=== PATIENT | female | born 1965 | race Caucasian/White ===

== ENCOUNTER 2016-10-31 09:14 | Observation (INO) ==
[2016-10-31 10:30] LABS: Basophils # 0.1 10*3/uL (0.0-0.2); Basophils % 0.7 % (0.0-0.8); Eosinophils # 0.3 10*3/uL (0.0-0.87); Eosinophils % 4.2 % (0.00-10.9); Hematocrit 40.2 VOL% (35.7-47.0); Hemoglobin 13.8 GM/DL (12.0-16.0); Immature Granulocytes % 0.3 %; Immature Granulocytes Absolute 0.02 #; Lymphocytes # 2.2 10*3/uL (1.4-4.0); Lymphocytes % 31.7 % (21.3-54.2); Mean Corpuscular HGB Conc 34.3 GM/DL (32-36); Mean Corpuscular Hemoglobin 31 PG (27-34); Mean Corpuscular Volume 90.5 FL (87-102); Mean Platelet Volume 10.2 FL (9.6-12.0); Monocytes # 0.6 10*3/uL (0.11-0.8); Monocytes % 8.5 % (1.7-12.7); Neutrophils # 3.9 10*3/uL (1.4-7.4); Neutrophils % 54.6 % (38.7-73.9); Platelet Count 238 T/CUMM (130-400); Red Blood Count 4.44 MC/CUMM (3.8-5.5); Red Cell Distribution Width 12.6 % (9.3-17.3); White Blood Count 7.1 T/CUMM (4-12)
[2016-10-31 10:39] LABS: Apearance,Urine Slightly Hazy (Clear); Bilirubin,Urine Negative (Negative); Blood, Urine Small mg/dL (Negative); Glucose,Urine (UA) Negative (Negative); Ketones,Urine 5 mg/dL (Negative); Mucus,Urine Moderate /LPF (Occasional); Nitrite,Urine Negative (Negative); Protein,Urine Negative; RBC,Urine 2 /HPF (0-4); Squamous Epithelial Cell,Urine Occasional /HPF (0-10); Urine Color Yellow (Yellow); Urine Specific Gravity 1.012 (1.001-1.035); Urine Urobilinogen < 2.0 EU/DL (0.2-1.0); WBC,Urine 1 /HPF (0-6)
--- NOTE | 2016-10-31 10:44 | CT Report ---
History: Left lower quadrant abdominal pain. Diarrhea Date: 10/31/2016 Study: CT abdomen and pelvis without contrast Comparison exam: No previous abdominal CT currently available for comparison Technique: Spiral CT sections were obtained from the lung bases to the pubic symphysis without contrast CT abdomen: There is no graciela pneumonia in the partially visualized lung bases. There is no gross pleural or pericardial effusion. There is no radiopaque renal or ureteral stone. There is no hydronephrosis. The liver, spleen, pancreas, adrenal glands, bile ducts, and fluid-filled gallbladder are unremarkable. There is no aneurysm of the mildly calcified abdominal aorta. There is a tiny periumbilical hernia containing fat. There is no bowel obstruction. The appendix is identified and appears normal. There is no gross lymphadenopathy by short axis diameter criteria. Schmorl's nodes noted inferiorly at L3 and L5. There is mild lumbar spondylosis. There is moderate degenerative disc narrowing at L3-L4. CT pelvis: There is no pelvic mass or abnormal pelvic fluid collection. There is no pelvic lymphadenopathy by short axis diameter criteria. The CT exam was performed using one or more of the following dose reduction techniques: Automated exposure control, adjustment of the mA and/or kV according to patient size, or use of iterative reconstruction technique. Impression: No acute abdominal process PROCEDURE INTERPRETED AT [facility] DEPARTMENT OF RADIOLOGY Final Report Signed by: Dr. Keira Nicole
[2016-10-31 11:00] LABS: Alanine Aminotransferase 29 U/L (13-56); Albumin 3.9 G/DL (3.4-5.0); Alkaline Phosphatase 180 U/L (45-117); Aspartate Amino Transferase 21 U/L (0-37); Bilirubin,Total < 0.39 MG/DL (0.2-1.0); Blood Urea Nitrogen 6 MG/DL (7-18); Calcium 9.3 MG/DL (8.5-10.1); Glucose 90 MG/DL (74-106); Magnesium 2.2 MG/DL (1.8-2.4); Osmolality,Calculated 276.4 MOS/KG (273-304); Potassium 3.7 MMOL/L (3.5-5.1); Sodium 140 MMOL/L (136-145); Total Protein 6.7 G/DL (6.4-8.3)
--- NOTE | 2016-10-31 11:18 | Emergency Department Note ---
Rishi Niño Rolonda, am scribing for, and in the presence of, Anshul Patterson MD 09:56. Leonardo Niño Phillip K, MD, personally performed the services described in this documentation, ascribed by Nalini Blackwell in my presence, and it is both accurate and complete . Arrival - Arrival Chief Complaint: Nausea/Vomiting/Diarrhea Stated Complaint: diahrrea nausea stomach pain for lot days ED Nursing Triage Note: diarrhea for ten days or more. was started on flagyl on monday and told to come to er if not better on monday. reports some nausea and pain in right side of abdomen that started this morning. Mode of Arrival: Ambulatory Limitations: No Limitations Source: Patient, Old Records Reviewed, RN Notes Reviewed Time Seen by Provider: 10/31/16 09:41 - History of Present Illness HPI Narrative: Pt henna 50 y/o female who presents to the ED for further evaluation of diarrhea with an onset of x1 week. Pt states that she has been having a lose stool but it has not been watery. She states that she has diarrhea approximately x5-10 a day. She denies eating old food or traveling out of the country. Pt states that she also has left sided back and abdomen pain. She states that she is taking Flagyl TID and it feels like "her face is on fire" after her third dose. She confirms nausea but denies vomiting and fever. No other complaint/pain in ED. Onset (ago): week(s) Consistency: constant Severity: mild, moderate Severity scale (1-10): 4 Date of Last Menstrual Period: part hy Allergies/Adverse Reactions: Allergies Allergy/AdvReac Type Severity Reaction Status Date / Time No Known Allergies Allergy Verified 09/12/16 14:42 Home Medications: Home Medications Medication Instructions Recorded Confirmed Type PHENobarbital [Phenobarbital] 200 mg PO BEDTIME 06/02/16 10/31/16 History LORazepam TAB [Ativan Tab] 0.5 mg PO BID PRN 07/21/16 10/31/16 History Acetaminophen/Caffeine [Excedrin 1 each PO DAILY PRN 09/12/16 10/31/16 History Tension Headache Cplt] Methocarbamol [Methocarbamol] 500 mg PO BID PRN 10/31/16 10/31/16 History Ondansetron HCl [Ondansetron HCl] 4 mg PO Q6H PRN 10/31/16 10/31/16 History metroNIDAZOLE [Metronidazole 500 mg PO TID 10/31/16 10/31/16 History Cap/Tab] Review of System - Review of System 12 point system: reviewed and no additional remarkable complaints except as stated - Review of System Constitutional: Absent: chills Eyes: Absent: discharge Head/Ears/Nose/Throat: Absent: earache Respiratory: Absent: cough Cardiovascular: Absent: chest pain Gastrointestinal: Present: abdominal pain, nausea, diarrhea. Absent: vomiting Genitourinary female: Absent: dysuria Musculoskeletal: Present: back pain. Absent: arm pain Skin: Absent: rash Neurological: Absent: headache Psychiatric: Absent: anxiety Endocrine: Absent: cold intolerance Hematological/Lymphatic: Absent: easy bleeding Allergic/Immunologic: Absent: facial swelling Medical,Surgical,& Family Hx - Medical History Neurology: History of: Migraine, Seizures (LAST SEIZURE 2007.) HEENT: History of: Eye Problem Respiratory: No history of: Respiratory Problems (FLU VAC- NO; PNEU VAC- NO.) Genitourinary: History of: Recurring Urinary Tract Infections (have had one) Gastrointestinal: History of: GI Problems (CONSTIPATION/ DIARRHEA.) Musculoskeletal: History of: Back/Neck Problems (NECK OA) Other: History of: Anesthesia Reactions (itchy in face, NAUSEA), Miscellaneous Medical Problems (SHINGLES 2013 RT ARM) - Surgical History Abdominal Surgeries: Surgical HX of: Abdominal Surgery, Colonoscopy, Hernia Repair Reproductive Surgeries: Surgical HX of;: Section (x2), Dilation and Curettage, Gynecologic Surgery, Hysterectomy (partial), Tubal Ligation Orthopedic Surgeries: Surgical HX of;: Orthopedic Surgery (BILATERAL 5TH DIGIT ON FOOT CORRECTION) - Family History Family History: Reports;: Family Heart Disease (parents) - Social History Smoking Status: Current some day smoker Exam Vital Signs: Vital Signs Temperature 98.1 F 10/31/16 09:21 Pulse Rate 95 H 10/31/16 09:21 Respiratory Rate 18 10/31/16 09:21 Blood Pressure 107/81 10/31/16 09:21 O2 Sat by Pulse Oximetry 98 10/31/16 09:21 - General General appearance: alert, in no apparent distress - Head Head exam: Present: atraumatic, normocephalic - Eye Eye exam: Present: PERRL, EOMI - ENT ENT exam: Present: mucous membranes moist. Absent: mucous membranes dry - Neck Neck exam: Present: full ROM. Absent: tenderness - Chest Chest inspection: Present: symmetric chest wall rise. Absent: tenderness - Respiratory Respiratory exam: Present: normal lung sounds bilaterally. Absent: wheezes - Cardiovascular Cardiovascular exam: Present: regular rate, normal rhythm, normal heart sounds. Absent: bradycardia - Abdominal Exam Abdominal exam: Present: soft, tenderness (LLQ to direct palpation), normal bowel sounds - Extremities Exam Extremities exam: Present: full ROM. Absent: tenderness - Back Exam Back exam: Present: full ROM, tenderness, CVA tenderness (L) - Neurological Exam Neurological exam: Present: alert, oriented X3, CN II-XII intact - Psychiatric Psychiatric exam: Present: normal affect, normal mood - Skin Skin exam: Present: warm, dry, intact, normal color. Absent: rash Results - Labs CBC & BMP: 10/31/16 10:11 10/31/16 10:11 Lab Results: I have reviewed the patients labs Labs: Laboratory Tests 10/31/16 10:11 WBC 7.1 RBC 4.44 Hgb 13.8 Hct 40.2 - Diagnostic Findings Procedure: CT Abdomen and Pelvis: report reviewed by me (CT abdomen and pelvis shows nothing acute. There is no evidence of diverticulitis or appendicitis.) Disposition Clinical Impression: Abdominal pain, Diarrhea Case discussed with: patient Disposition: Still a Patient Condition: Guarded Additional Instructions: Admit to the hospitalist.
--- NOTE | 2016-10-31 12:13 | Hospitalist History & Physical ---
Assessment and Plan - Time spent with patient Time spent with patient: Greater than 30 minutes (1) Abdominal pain Status: Acute Assessment and plan: Admit 10/31/16 IV hydration: NS Consult GI for 10 +days of loose stools and nausea, with now left sided abd and flank pain Stool Culture: cdiff, wbc Will discuss with Dr Aviles for further recommendations with care. Current Visit: Yes (2) Diarrhea Status: Acute Current Visit: Yes History of Present Illness Chief complaint: nausea/diarrhea/ left sided abdominal and flank pain History of present illness: Ms. Dong is a 50 year old white female with PMHx of seizure, migraine, shingles presented to the ED for further evaluation of nausea, diarrhea for 10 or more days and now onset of left sided lower abdominal and flank pain. She reports stool frequency 6-10 very loose stools. She reports going to Dr Alston on Monday and was placed on Flagyl without any improvement in symptoms. She reports only intake has been a few crackers and gingerale for the past several days. She denies any blood in stool or dark tarry stools. She denies vomiting, fever, or chills. IN ED: HR 95 - 100s, no fever noted, BP 90/67, Patient appears pale and mucous memebranes slightly dry, left sided abdominal tenderness and left sided flank tenderness with palpation. LABs H&H stable, no elevation in WBC, URINALYSIS trace leukocytes. CT Abd: nothing acute. Hospital Medicine consulted for admission and further evaluation. She smokes 3 cigarettes per day, occasional alcohol use and denies any drug use. She recently (last month) had a rotator cuff repair on right shoulder. PCP: Dr Alston After discussion with Dr Patterson in the ED and Dr Aviles with Hospital Medicine, it was agreed to admit patient for observation. Home medications to be reviewed and reconciliation to follow. Home Medications Medication Instructions Recorded Confirmed Type PHENobarbital [Phenobarbital] 200 mg PO BEDTIME 06/02/16 10/31/16 History LORazepam TAB [Ativan Tab] 0.5 mg PO BID PRN 07/21/16 10/31/16 History Acetaminophen/Caffeine [Excedrin 1 each PO DAILY PRN 09/12/16 10/31/16 History Tension Headache Cplt] Methocarbamol [Methocarbamol] 500 mg PO BID PRN 10/31/16 10/31/16 History Ondansetron HCl [Ondansetron HCl] 4 mg PO Q6H PRN 10/31/16 10/31/16 History metroNIDAZOLE [Metronidazole 500 mg PO TID 10/31/16 10/31/16 History Cap/Tab] Allergies Allergy/AdvReac Type Severity Reaction Status Date / Time No Known Allergies Allergy Verified 09/12/16 14:42 Medical,Surgical,& Family Hx - Medical History Neurology: History of: Migraine, Seizures (LAST SEIZURE 2007.) HEENT: History of: Eye Problem Respiratory: No history of: Respiratory Problems (FLU VAC- NO; PNEU VAC- NO.) Genitourinary: History of: Recurring Urinary Tract Infections (have had one) Gastrointestinal: History of: GI Problems (CONSTIPATION/ DIARRHEA.) Musculoskeletal: History of: Back/Neck Problems (NECK OA) Other: History of: Anesthesia Reactions (itchy in face, NAUSEA), Miscellaneous Medical Problems (SHINGLES 2013 RT ARM) - Surgical History Abdominal Surgeries: Surgical HX of: Abdominal Surgery, Colonoscopy, Hernia Repair Reproductive Surgeries: Surgical HX of;: Section (x2), Dilation and Curettage, Gynecologic Surgery, Hysterectomy (partial), Tubal Ligation Orthopedic Surgeries: Surgical HX of;: Orthopedic Surgery (BILATERAL 5TH DIGIT ON FOOT CORRECTION) - Family History Family History: Reports;: Family Heart Disease (parents) - Social History Smoking Status: Current some day smoker Frequency of Alcohol Use: Occasionally Type of Drug Use: None Marital Status: Lives With:: Spouse Functional capacity: independent ambulation 12 point system: reviewed and no additional remarkable complaints except as stated - Constitutional Constitutional: Absent: chills, fever(s) - Gastrointestinal Gastrointestinal: Present: abdominal pain (left lower sided abdominal pain and left flank pain), loose stools, nausea. Absent: hematemesis, hematochezia, vomiting - Genitourinary Genitourinary: Present: flank pain (left sided). Absent: difficulty urinating, dysuria Exam - Constitutional Vitals: Period Temp Pulse Resp BP Sys/Patel Pulse Ox Last 24 Hr 98.1 F-98.1 F 71-98 16-18 90-107/67-81 96-99 General appearance: normal weight, no acute distress - Head Head exam: Present: normal inspection, normocephalic - Eye Eye exam: Present: EOMI Pupils: Present: LETICIA - ENT ENT exam: Present: other (slightly dry mucous membranes) - Neck Neck exam: Present: normal inspection. Absent: thyromegaly - Respiratory Respiratory exam: Present: clear to auscultation bilaterally. Absent: rhonchi, stridor, wheezes - Cardiovascular Cardiovascular exam: Present: regular rate and rhythm, tachycardia (95-100s) - GI/Abdominal GI/Abdominal exam: Present: normal bowel sounds, tenderness, soft. Absent: firm , guarding, rebound - Extremities Exam Extremities exam: Present: normal inspection, full ROM. Absent: edema - Neurological Exam Neurological exam: Present: alert, oriented X3, CN II-XII intact - Psychiatric Psychiatric exam: Present: normal affect, normal mood. Absent: agitated, anxious - Skin Skin exam: Present: normal color, warm, dry Results - Labs CBC & BMP: 10/31/16 10:11 10/31/16 10:11 Lab Results: I have reviewed the past 24 hour labs - Diagnostic Findings Procedure: CT Abdomen and Pelvis: report reviewed by me (nothing acute)
[2016-10-31] MEDS ORDERED: ACETAMINOPHEN 325 MG TABLET PO PRN (12:23)
[2016-10-31] MEDS: SODIUM CHLORIDE 0.9% 1,000 ML IV SCH (13:56)
[2016-10-31] MEDS ORDERED: PROMETHAZINE INJ 25 MG in SODIUM CHLORIDE 0.9% 50 ML IV PRN (15:18)
[2016-10-31] MEDS: ONDANSETRON 4 MG/2 ML VIAL IV PRN ×2 (15:45→21:05)
[2016-10-31] MEDS: BISACODYL 5 MG TABLET PO SCH ×2 (15:48→22:41)
[2016-10-31] MEDS: CIPROFLOXACIN INJ 400 MG in PREMIX 1 EACH IV SCH (16:28)
[2016-10-31] MEDS ORDERED: POLYETHYLENE GLYCOL POWDER 255 GM BOTTLE PO ONE (18:00)
[2016-10-31] MEDS: metroNIDAZOLE INJ 500 MG in PREMIX 1 EACH IV SCH (18:23)
[2016-10-31] MEDS ORDERED: MAGNESIUM CITRATE 300 ML BOTTLE PO ONE (21:00)
[2016-10-31] MEDS: PHENobarbital 30 MG TABLET PO SCH (23:31)
[2016-10-31] MEDS: DESITIN 4OZ/NYSTATIN 15 GRAM MIXTURE PASTE TOP SCH (23:34)
[2016-11-01] MEDS: SODIUM CHLORIDE 0.9% 1,000 ML IV SCH ×3 (00:41→14:26)
[2016-11-01] MEDS: metroNIDAZOLE INJ 500 MG in PREMIX 1 EACH IV SCH (05:29)
[2016-11-01 05:45] LABS: Basophils % 0.6 % (0.0-0.8); Eosinophils # 0.2 10*3/uL (0.0-0.87); Hematocrit 38.3 VOL% (35.7-47.0); Hemoglobin 13.1 GM/DL (12.0-16.0); Immature Granulocytes % 0.4 %; Immature Granulocytes Absolute 0.02 #; Mean Corpuscular HGB Conc 34.2 GM/DL (32-36); Mean Corpuscular Hemoglobin 31 PG (27-34); Mean Platelet Volume 10.3 FL (9.6-12.0); Monocytes # 0.6 10*3/uL (0.11-0.8); Monocytes % 11.1 % (1.7-12.7); Neutrophils # 3.5 10*3/uL (1.4-7.4); Neutrophils % 65.9 % (38.7-73.9); Platelet Count 209 T/CUMM (130-400); Red Blood Count 4.21 MC/CUMM (3.8-5.5); Red Cell Distribution Width 12.8 % (9.3-17.3); White Blood Count 5.3 T/CUMM (4-12)
[2016-11-01 06:09] LABS: Calcium 9.1 MG/DL (8.5-10.1); Magnesium 2.6 MG/DL (1.8-2.4); Osmolality,Calculated 279.1 MOS/KG (273-304); Potassium 3.7 MMOL/L (3.5-5.1)
[2016-11-01] MEDS: BISACODYL 5 MG TABLET PO SCH (08:54)
[2016-11-01] MEDS: DESITIN 4OZ/NYSTATIN 15 GRAM MIXTURE PASTE TOP SCH ×2 (08:55→20:02)
[2016-11-01] MEDS: PANTOPRAZOLE 40 MG TABLET PO SCH (08:55)
--- NOTE | 2016-11-01 08:59 | Operative Note ---
Date of procedure: 11/01/16 Pre-op diagnosis: Diarrhea, generalized abdominal pain, nausea Post-op diagnosis: other (The patient has mild erythema noted throughout the colon with a single polyp noted in the sigmoid region. ? Low-grade colitis, biopsies pending--this is likely to reveal either self-limited colitis or normal tissue but biopsies obtained to rule out microscopic and collagenous colitis.) Procedure: PROCEDURE: Colonoscopy with hot biopsy polypectomy and cold biopsy for pathology REFERRING PHYSICIAN: Inge Aviles MD INDICATIONS: Diarrhea, generalized abdominal pain, no CT scan changes or elevated white blood cell count, question colitis the prior H&P was reviewed and interrim changes are as noted: No change from GI consultation yesterday ENDOSCOPIST: Carmelo Hadley MD ENDOSCOPE: [employer] Video 100 System colonoscope COLON PREPARATION: 238 gm of PEG containing laxative and 1.9 liters of gatoraid/sports drink and dulcolax 15 mg q8 hours x 3 ASA CLASS: 3 EXAM: CV: regular rate and rhythm Respiratory: Clear without wheezes Abdominal: active bowel sounds Rectal: Good tone, no fissures or fistulas MEDICATION: Per nursing anesthesia protocol, see their notes PROCEDURE: After discussion of the potential risks and benefits of colonoscopy, the informed consent was obtained, from patient or health care surrogate. The patient was then placed in the left lateral decubitus position where sedation was achieved as noted above. Rectal examination was followed by insertion of the colonoscope. The colonoscope was passed under direct visualization to the cecum. Advancement was facilitated by insertion/withdrawl techniques, abdominal pressure and patient positioning. Once the cecal pole was reached, slow withdrawal was performed with the findings as noted below. The patient tolerated the procedure well and without complication. QUALITY OF PREP: Excellent WITHDRAWL TIME: 6 minutes 43 seconds BIOPSIES: Cecum/ascending, descending/sigmoid with sigmoid polyp PHOTOGRAPHS: Obtained FINDINGS: The musoca appeared with mild erythema in the following regions: rectum, descending colon, splenic flexure, transverse colon, hepatic flexure, ascending colon and cecum. Position within the cecum was confirmed by ileocecal valve, appendiceal oriface, and the convergence of folds (crows foot) . No mass or AVM was noted throughout the colon. There was some adhesive disease noted in the sigmoid region making travel through this area more difficult, there was a single 7 mm polyp noted in the low sigmoid colon at 20 cm. No diverticulosis noted. Intubation of the TI was achieved x 5 cm with normal appearence. Due to the mild erythema noted throughout the colon routine biopsies were taken of the cecum/ascending, descending/sigmoid to look for microscopic and collagenous colitis. IMPRESSION: The patient has mild erythema noted throughout the colon with a single polyp noted in the sigmoid region. ? Low-grade colitis, biopsies pending--this is likely to reveal either self-limited colitis or normal tissue but biopsies obtained to rule out microscopic and collagenous colitis. RECOMMENDATIONS: High fiber diet Repeat colonosocopy will be in 5-10 years, depending on pathology of the polyp removed Citrucel 1 tablespoon in 12 oz juice BID: 1 bottle: :11 Follow up by phone for biopsy results in 1-2 weeks by phone Carmelo Hadley MD COPY TO: Inge Aviles MD Anesthesia: MAC Surgeon / Physician: Carmelo Hadley Estimated blood loss: minimal Specimens: other (cecum/ascending, descending/sigmoid and sigmoid polyp) Condition: stable Disposition: post procedure unit ([facility] Suite) Results - Labs CBC & BMP: 11/01/16 05:27 11/01/16 05:27 Discharge Plan - Discharge Medications No Action PHENobarbital [Phenobarbital] 200 mg PO BEDTIME Acetaminophen/Caffeine [Excedrin Tension Headache Cplt] 1 each PO DAILY PRN PRN Reason: Headache metroNIDAZOLE [Metronidazole Cap/Tab] 500 mg PO TID Methocarbamol [Methocarbamol] 500 mg PO BID PRN PRN Reason: SHOULDER SPASMS LORazepam TAB [Ativan Tab] 0.5 mg PO BID PRN PRN Reason: Agitation Ondansetron HCl [Ondansetron HCl] 4 mg PO Q6H PRN PRN Reason: Nausea/Vomiting - Follow Up or Referral - Forms/Instructions
[2016-11-01] MEDS ORDERED: fentaNYL 100 MCG/2 ML VIAL ONE (09:03)
--- NOTE | 2016-11-01 09:04 | Gastrointestinal Progress Note ---
Assessment and Plan (1) Diarrhea Status: Acute Assessment and plan: This is likely a prolonged gastroenteritis that might be viral given the fact that she and her family experience head cold prior to the development of her illness. CT scan and CBC thus far have been relatively unremarkable. Agree with expanding stool studies to look for evidence of colitis, C. difficile infection, and fecal leukocytes. Given the duration of the illness will go ahead and arrange for a repeat colonoscopy especially since the last one was done back in 2010. This may show us evidence of ischemia, but given the fact that she had been treated with several days of metronidazole is unlikely to demonstrate C. difficile. Patient will prep tonight with MiraLAX and will perform colonoscopy in the a.m. tomorrow somewhere between 7:00 and 9:00. Risks of the procedure were reviewed with the patient and include but are not limited to: Bleeding, infection, perforation, cardiac and pulmonary compromise. 11/01/16--the colonoscopy demonstrated the following: The patient has mild erythema noted throughout the colon with a single polyp noted in the sigmoid region. ? Low-grade colitis, biopsies pending--this is likely to reveal either self-limited colitis or normal tissue but biopsies obtained to rule out microscopic and collagenous colitis. Certainly no evidence of ischemia or other significant changes, will watch and see how she does as we advance her diet. Because of the abdominal spasm I am putting her on some Levsin 3 times daily on a scheduled dosing regimen to see how this does with her pain and bloating sensation. Current Visit: Yes (2) Generalized abdominal pain Status: Acute Assessment and plan: This pain is likely reflective of an underlying colitis versus gastroenteritis. Further recommendations post colonoscopy tomorrow. Supportive care in the interim. Antinauseants have been written for. We will see how she does on a clear liquid diet. Stool studies are pending. 11/01/16--mild erythema noted throughout the colon however nothing to suggest a cause for her severe pain. This may still be a gastroenteritis but biopsies are now pending to look at the colon tissue and see if there is any evidence of a self-limited colitis. I suspect this will probably the end diagnosis. Current Visit: Yes (3) Change in bowel habits Status: Acute Assessment and plan: As noted above. 11/01/16--as noted above, continue to observe. The patient did have a polyp that was noted, this appeared hyperplastic, biopsies are pending. Current Visit: Yes (4) Nausea Status: Acute Assessment and plan: As noted above. Protonix have been written for. The patient is going to continue a clear liquid diet until midnight tonight. 11/01/16--fairly significant nausea last night with a clear liquid diet and bowel prep, low lactose diet written for now we will watch and see how she does with this. This patient is on Cipro but due to her nausea I have stopped the Flagyl as this did not appear to be helping prior to her admission either--it certainly may be feeding into the nausea aspect of her illness. Current Visit: Yes Gastroenterology - PN: Subj Interval history: Patient is doing adequately this morning, she had a rough night with a bowel prep however colonoscopy demonstrated findings as noted above. Exam (Progress Note) - Constitutional Vitals: Period Temp Pulse Resp BP Sys/Patel Pulse Ox Last 24 Hr 97.6 F-98.2 F 71-99 16-20 89-125/60-81 96-100 General appearance: mild distress - Head Head exam: Present: normocephalic - Eye Eye exam: Present: EOMI Pupils: Present: LETICIA - Respiratory Respiratory exam: Present: clear to auscultation bilaterally. Absent: rhonchi, stridor, wheezes - Cardiovascular Cardiovascular exam: Present: regular rate and rhythm - GI/Abdominal GI/Abdominal exam: Present: normal bowel sounds, distended, tenderness (Still diffuse slightly worse in the left lower quadrant), soft. Absent: guarding, rebound - Extremities Exam Extremities exam: Absent: edema - Neurological Exam Neurological exam: Present: alert, oriented X3 - Psychiatric Psychiatric exam: Present: normal affect, normal mood - Skin Skin exam: Present: warm Results - Labs CBC & BMP: 11/01/16 05:27 11/01/16 05:27
--- NOTE | 2016-11-01 09:07 | Anesthesia Post-Op ---
Anesthesia Post OP - Post Ansesthetic Evaluation Patient seen in post op: Yes Resp: within normal limits CV: within normal limits Mental: within normal limits Temp: within normal limits [id number]: within normal limits Nausea and Vomiting: within normal limits Pain: within normal limits Other:: patient complained of left shoulder pain from her previous RCR surgery.. Titrated Fent 100mcg Iv Patient states pain is better.
--- NOTE | 2016-11-01 14:30 | Hospitalist Progress Note ---
Assessment and Plan (1) Diarrhea Status: Acute Assessment and plan: 1)diarrhea- most likely acute self limited colitis per Dr yadav. supportive care, heplock IV after this liter completed, anticipate home in am. continue cipro, flagyl stopped. I have coordinated care with Dr Yadav. 2)nausea- resolved Current Visit: Yes (2) Nausea Status: Acute Current Visit: Yes Hospitalist: Subjective Interval history: Mrs Dong feels better than on admit and tolerated her cscope well. She has eaten meat loaf without nausea. Her last antiemetics were at 8:30 this morning. She considered carefully whether she should go home this afternoon and decided to stay overnight. She is very tired from being up all night for colon prep. Exam - Constitutional Vitals: Period Temp Pulse Resp BP Sys/Patel Pulse Ox Last 24 Hr 97.0 F-98.2 F 80-99 12-20 89-125/58-78 96-100 General appearance: normal weight, no acute distress - Eye Eye exam: Present: EOMI. Absent: scleral icterus - Respiratory Respiratory exam: Present: clear to auscultation bilaterally - Cardiovascular Cardiovascular exam: Present: regular rate and rhythm - GI/Abdominal GI/Abdominal exam: Present: normal bowel sounds, soft. Absent: tenderness - Extremities Exam Extremities exam: Absent: edema Results - Labs CBC & BMP: 11/01/16 05:27 11/01/16 05:27 Lab Results: I have reviewed the past 24 hour labs Quality Measures - Stroke Symptom Onset Unknown: No
[2016-11-01] MEDS: HYOSCYAMINE 0.125 MG TABLET PO SCH ×2 (15:44→20:02)
[2016-11-01] MEDS: CIPROFLOXACIN INJ 400 MG in PREMIX 1 EACH IV SCH (15:44)
[2016-11-01] MEDS: PHENobarbital 30 MG TABLET PO SCH ×2 (20:02→21:28)
[2016-11-02] MEDS: SODIUM CHLORIDE 0.9% 1,000 ML IV SCH ×3 (00:56→19:09)
[2016-11-02] MEDS: ONDANSETRON 4 MG/2 ML VIAL IV PRN ×2 (03:51→08:42)
[2016-11-02] MEDS: PANTOPRAZOLE 40 MG TABLET PO SCH (08:41)
[2016-11-02] MEDS: HYOSCYAMINE 0.125 MG TABLET PO SCH ×3 (08:41→22:10)
[2016-11-02] MEDS: DESITIN 4OZ/NYSTATIN 15 GRAM MIXTURE PASTE TOP SCH ×2 (09:22→22:10)
--- NOTE | 2016-11-02 12:25 | Pathology Report from [facility] ---
[facility] ACCESSION # : [id number] PATIENT NAME : Yumi Valdez ORDERING DR : Carmelo Hadley MD CLINICAL HX: Abdominal pain - N/V POST-OP DX: #1 Mild colitis #2 Mild colitis and sigmoid polyp SPECIMEN INFO: #1 Ascending/Cecum biopsy #2 Descending/Sigmoid biopsy and sigmoid biopsy GROSS DESCRIPTION: #1 Received in formalin labeled with the patients name YUMI VALDEZ and #1 consists of a 0.5 x 0.4 cm aggregate of almazan tissue. Submitted in cassette #1.#2 Received in formalin labeled with the patients name YUMI VALDEZ and #2 consists of a 1.0 x 0.5 cm aggregate of almazan tissue. Submitted in cassette #2. DIAGNOSIS FOR YUMI VALDEZ: #1 CECUM & ASCENDING COLON BIOPSIES: Focal superficial acute and chronic inflammation c/w acute self-limited/ infectious colitis.#2 DESCENDING & SIGMOID COLON BIOPSIES: Focal superficial acute and chronic inflammation c/w acute self-limited/ infectious colitis. Hyperplastic polyp with marked thermal artifact. COLLECTED DATE: 11/01/2016 [facility] REPORT DATE: 11/02/2016 ELECTRONICALLY SIGNED BY: Anil Loza M.D. 11/02/2016 - 10:39:41 MTDNakia
--- NOTE | 2016-11-02 13:08 | XRay Report ---
History: Severe abdominal pain following colon polyp removal via endoscopy Date: 11/02/2016 Study: KUB Comparison exam: No previous abdominal x-ray available The bowel gas pattern is nonobstructive without gross mass lesion. No gross pneumoperitoneum is seen by this modality. There is a moderate amount of retained stool in the colon. No gross radiopaque calculi are seen. There is mild scattered degenerative disc disease of the lumbar spine Impression: No definite acute process PROCEDURE INTERPRETED AT [facility] DEPARTMENT OF RADIOLOGY Final Report Signed by: Dr. Keira Nicole
[2016-11-02] MEDS ORDERED: PROMETHAZINE 25 MG TABLET PO PRN (14:21)
--- NOTE | 2016-11-02 14:24 | Gastrointestinal Progress Note ---
Assessment and Plan (1) Diarrhea Status: Acute Assessment and plan: This is likely a prolonged gastroenteritis that might be viral given the fact that she and her family experience head cold prior to the development of her illness. CT scan and CBC thus far have been relatively unremarkable. Agree with expanding stool studies to look for evidence of colitis, C. difficile infection, and fecal leukocytes. Given the duration of the illness will go ahead and arrange for a repeat colonoscopy especially since the last one was done back in 2010. This may show us evidence of ischemia, but given the fact that she had been treated with several days of metronidazole is unlikely to demonstrate C. difficile. Patient will prep tonight with MiraLAX and will perform colonoscopy in the a.m. tomorrow somewhere between 7:00 and 9:00. Risks of the procedure were reviewed with the patient and include but are not limited to: Bleeding, infection, perforation, cardiac and pulmonary compromise. 11/01/16--the colonoscopy demonstrated the following: The patient has mild erythema noted throughout the colon with a single polyp noted in the sigmoid region. ? Low-grade colitis, biopsies pending--this is likely to reveal either self-limited colitis or normal tissue but biopsies obtained to rule out microscopic and collagenous colitis. Certainly no evidence of ischemia or other significant changes, will watch and see how she does as we advance her diet. Because of the abdominal spasm I am putting her on some Levsin 3 times daily on a scheduled dosing regimen to see how this does with her pain and bloating sensation. 11/02/16--the patient's diarrhea has abated. She has some pain in her abdomen. She had biopsies that showed a self-limited colitis on her recent colonoscopy. There was a hyperplastic polyp that will require repeat colonoscopy in 10 years. KUB was taken which shows no acute process. Patient states that she has a 9 out of 10 pain but appears to have almost no pain when talking with her at the bedside. She is on Levsin she is getting Cipro, we will change the Cipro over to an oral preparation. The patient can go home on clear liquids tomorrow if she is afraid to advance her diet Current Visit: Yes (2) Generalized abdominal pain Status: Acute Assessment and plan: This pain is likely reflective of an underlying colitis versus gastroenteritis. Further recommendations post colonoscopy tomorrow. Supportive care in the interim. Antinauseants have been written for. We will see how she does on a clear liquid diet. Stool studies are pending. 11/01/16--mild erythema noted throughout the colon however nothing to suggest a cause for her severe pain. This may still be a gastroenteritis but biopsies are now pending to look at the colon tissue and see if there is any evidence of a self-limited colitis. I suspect this will probably the end diagnosis. 11/02/16--patient states that her pain is slightly better than earlier this morning when it was "12 out of 10" she states that this is now down to a 9 out of 10. She has Tylenol written. We will be switching over her IV Cipro to oral Cipro twice daily at this time. Current Visit: Yes (3) Change in bowel habits Status: Acute Assessment and plan: As noted above. 11/01/16--as noted above, continue to observe. The patient did have a polyp that was noted, this appeared hyperplastic, biopsies are pending. 11/02/16--continue observation. Current Visit: Yes (4) Nausea Status: Acute Assessment and plan: As noted above. Protonix have been written for. The patient is going to continue a clear liquid diet until midnight tonight. 11/01/16--fairly significant nausea last night with a clear liquid diet and bowel prep, low lactose diet written for now we will watch and see how she does with this. This patient is on Cipro but due to her nausea I have stopped the Flagyl as this did not appear to be helping prior to her admission either--it certainly may be feeding into the nausea aspect of her illness. 11/02/16--the patient is doing better off of Flagyl I cannot really divine from her whether or not she wants to pursue an upper endoscopy given her nausea, we may simply watch and see how she does on Protonix and that she continues antibiotic therapy. We have written for some as needed Phenergan. Current Visit: Yes Gastroenterology - PN: Subj Interval history: This patient is complaining of a high level of pain, currently stating this is 9 out of 10 in intensity and slightly spastic feel to it. We went over her biopsies which show a self-limited colitis. Exam (Progress Note) - Constitutional Vitals: Period Temp Pulse Resp BP Sys/Patel Pulse Ox Last 24 Hr 97.0 F-98.3 F 68-95 15-18 88-108/54-62 91-98 General appearance: mild distress - Eye Eye exam: Present: EOMI Pupils: Present: LETICIA - Respiratory Respiratory exam: Present: clear to auscultation bilaterally. Absent: rhonchi, stridor, wheezes - Cardiovascular Cardiovascular exam: Present: regular rate and rhythm. Absent: gallop, rubs - GI/Abdominal GI/Abdominal exam: Present: normal bowel sounds, tenderness (Periumbilical), soft. Absent: distended, guarding, rebound - Neurological Exam Neurological exam: Present: alert, oriented X3 - Psychiatric Psychiatric exam: Present: anxious - Skin Skin exam: Present: warm Results - Labs CBC & BMP: 11/01/16 05:27 11/01/16 05:27
--- NOTE | 2016-11-02 14:33 | Hospitalist Progress Note ---
Assessment and Plan (1) Diarrhea Status: Acute Assessment and plan: 1)acute self limited colitis- having abdominal pain and cramps as before. path, CT, KUB all normal. supportive care. home in am. ate meatloaf yesterday after procedure. Continue clears if she prefers. On cipro. 2)nausea- phenergan prn. Current Visit: Yes (2) Nausea Status: Acute Current Visit: Yes Hospitalist: Subjective Interval history: Mrs Dong complained this morning of "12/10" pain that feels like something is blocked in her bowel. She has had nausea. She prefers clear liquids. I ordered KUB which showed moderate amount of stool and air thoroughout the colon, AAS pending. Since this morning I have spoken with Dr Hadley and coordinated care after he saw her. We have stopped her narcotics, and started oral phenergan. He told her she could go home on clears. Her pathology is consistent with acute self limited colitis. Exam - Constitutional Vitals: Period Temp Pulse Resp BP Sys/Patel Pulse Ox Last 24 Hr 97.0 F-98.3 F 68-95 15-18 88-108/54-62 91-98 General appearance: normal weight, no acute distress - Eye Eye exam: Present: EOMI. Absent: scleral icterus - Respiratory Respiratory exam: Present: clear to auscultation bilaterally - Cardiovascular Cardiovascular exam: Present: regular rate and rhythm - GI/Abdominal GI/Abdominal exam: Present: normal bowel sounds, soft. Absent: tenderness - Extremities Exam Extremities exam: Absent: edema Results - Labs CBC & BMP: 11/01/16 05:27 11/01/16 05:27 Quality Measures - Stroke Symptom Onset Unknown: No
--- NOTE | 2016-11-02 15:20 | XRay Report ---
EXAM: XR abdomen 2V CLINICAL INDICATION: Abdominal Pain COMPARISON: None Findings: No gastric distention. No abnormally dilated small bowel loops are identified to suggest obstruction. No free intraperitoneal air. . Visceral shadows are normal. No abnormal focal soft tissue masses or calcific densities identified in the abdomen or pelvis. IMPRESSION: No acute findings PROCEDURE INTERPRETED AT [facility] DEPARTMENT OF RADIOLOGY Final Report Signed by: Caleb Ramirez MD
[2016-11-02] MEDS: CIPROFLOXACIN 500 MG TABLET PO SCH (22:10)
[2016-11-02] MEDS: PHENobarbital 30 MG TABLET PO SCH (22:10)
--- NOTE | 2016-11-03 09:05 | Gastrointestinal Progress Note ---
Assessment and Plan (1) Diarrhea Status: Acute Assessment and plan: This is likely a prolonged gastroenteritis that might be viral given the fact that she and her family experience head cold prior to the development of her illness. CT scan and CBC thus far have been relatively unremarkable. Agree with expanding stool studies to look for evidence of colitis, C. difficile infection, and fecal leukocytes. Given the duration of the illness will go ahead and arrange for a repeat colonoscopy especially since the last one was done back in 2010. This may show us evidence of ischemia, but given the fact that she had been treated with several days of metronidazole is unlikely to demonstrate C. difficile. Patient will prep tonight with MiraLAX and will perform colonoscopy in the a.m. tomorrow somewhere between 7:00 and 9:00. Risks of the procedure were reviewed with the patient and include but are not limited to: Bleeding, infection, perforation, cardiac and pulmonary compromise. 11/01/16--the colonoscopy demonstrated the following: The patient has mild erythema noted throughout the colon with a single polyp noted in the sigmoid region. ? Low-grade colitis, biopsies pending--this is likely to reveal either self-limited colitis or normal tissue but biopsies obtained to rule out microscopic and collagenous colitis. Certainly no evidence of ischemia or other significant changes, will watch and see how she does as we advance her diet. Because of the abdominal spasm I am putting her on some Levsin 3 times daily on a scheduled dosing regimen to see how this does with her pain and bloating sensation. 11/02/16--the patient's diarrhea has abated. She has some pain in her abdomen. She had biopsies that showed a self-limited colitis on her recent colonoscopy. There was a hyperplastic polyp that will require repeat colonoscopy in 10 years. KUB was taken which shows no acute process. Patient states that she has a 9 out of 10 pain but appears to have almost no pain when talking with her at the bedside. She is on Levsin she is getting Cipro, we will change the Cipro over to an oral preparation. The patient can go home on clear liquids tomorrow if she is afraid to advance her diet 11/02/16--patient is not appearing to have any further diarrhea, she is passing gas from the procedure. She has been on clear liquids and has not had any further severe pain. She states that she may continue these at home. Patient does not need a repeat colonoscopy for 10 years based on the hyperplastic polyp seen. The self-limited colitis should be treated with the Cipro for another 7 days. Prescription for this and the Levsin as an antispasmodic have been written for this patient to go home with. I have written her for some pantoprazole as well to help with her nausea. Current Visit: Yes (2) Generalized abdominal pain Status: Acute Assessment and plan: This pain is likely reflective of an underlying colitis versus gastroenteritis. Further recommendations post colonoscopy tomorrow. Supportive care in the interim. Antinauseants have been written for. We will see how she does on a clear liquid diet. Stool studies are pending. 11/01/16--mild erythema noted throughout the colon however nothing to suggest a cause for her severe pain. This may still be a gastroenteritis but biopsies are now pending to look at the colon tissue and see if there is any evidence of a self-limited colitis. I suspect this will probably the end diagnosis. 11/02/16--patient states that her pain is slightly better than earlier this morning when it was "12 out of 10" she states that this is now down to a 9 out of 10. She has Tylenol written. We will be switching over her IV Cipro to oral Cipro twice daily at this time. 11/03/16--The patient is transitioned over to oral Cipro and is taking as well, she can be discharged from the hospital today in my opinion. Thank you for the opportunity to see this very interesting lady, she can follow-up with me in the clinic as needed but I would not schedule her routine appointment, given the transient nature of her illness. Current Visit: Yes (3) Change in bowel habits Status: Acute Assessment and plan: As noted above. 11/01/16--as noted above, continue to observe. The patient did have a polyp that was noted, this appeared hyperplastic, biopsies are pending. 11/02/16--continue observation. 11/03/16--self-limited colitis, the patient is ready to be discharged today. Current Visit: Yes (4) Nausea Status: Acute Assessment and plan: As noted above. Protonix have been written for. The patient is going to continue a clear liquid diet until midnight tonight. 11/01/16--fairly significant nausea last night with a clear liquid diet and bowel prep, low lactose diet written for now we will watch and see how she does with this. This patient is on Cipro but due to her nausea I have stopped the Flagyl as this did not appear to be helping prior to her admission either--it certainly may be feeding into the nausea aspect of her illness. 11/02/16--the patient is doing better off of Flagyl I cannot really divine from her whether or not she wants to pursue an upper endoscopy given her nausea, we may simply watch and see how she does on Protonix and that she continues antibiotic therapy. We have written for some as needed Phenergan. 11/03/16--patient's nausea appears to be better, we might consider writing her prescription for some Phenergan as well. I will leave this to the hospitalist to decide. The remaining scripts have been paperclip to the front of the chart. Current Visit: Yes Gastroenterology - PN: Subj Interval history: Carmel is doing better this morning, her nausea is under better control, her abdominal pain is also improving on a day-to-day basis. She is tolerating her clear liquids and is ready to leave the hospital. We discussed staying off of lactose-containing products for the next 7-10 days. Exam (Progress Note) - Constitutional Vitals: Period Temp Pulse Resp BP Sys/Patel Pulse Ox Last 24 Hr 97.6 F-98.2 F 60-91 18-20 83-94/51-67 93-98 General appearance: no acute distress - Head Head exam: Present: normocephalic - Eye Eye exam: Present: EOMI - Respiratory Respiratory exam: Present: clear to auscultation bilaterally - Cardiovascular Cardiovascular exam: Present: regular rate and rhythm - GI/Abdominal GI/Abdominal exam: Present: normal bowel sounds (In the left lower quadrant), distended, tenderness (In the bilateral lower quadrants slightly worse on right greater than left), soft. Absent: guarding, rebound - Extremities Exam Extremities exam: Absent: edema - Neurological Exam Neurological exam: Present: alert, oriented X3, CN II-XII intact - Psychiatric Psychiatric exam: Present: normal affect, normal mood - Skin Skin exam: Present: warm Results - Labs CBC & BMP: 11/01/16 05:27 11/01/16 05:27
[2016-11-03] MEDS: CIPROFLOXACIN 500 MG TABLET PO SCH (09:37)
[2016-11-03] MEDS: HYOSCYAMINE 0.125 MG TABLET PO SCH (09:37)
[2016-11-03] MEDS: PANTOPRAZOLE 40 MG TABLET PO SCH (09:37)
[2016-11-03] MEDS: DESITIN 4OZ/NYSTATIN 15 GRAM MIXTURE PASTE TOP SCH (09:38)
--- NOTE | 2016-11-03 10:29 | Discharge Summary ---
Hospital Course - Hospital Course Hospital Course: Mrs Dong presented with diarrhea and nausea and abdominal pain. Her abdominal CT and stool studies were normal. Her cscope looked ok and a polyp was removed. It also looked ok and the path returned consistent with acute self limited colitis. She is tolerating her diet and will go home with levsin, phenergan prn and cipro to complete course of treatment. She will follow up with Dr Alston and Dr Hadley in their clinics. - Time spent with patient Time with patient DS: Greater than 30 minutes (34 minutes were spent on coordination of care, documentation, medicine reconciliation) Diagnosis - Discharge Diagnosis (1) Diarrhea Status: Resolved (2) Nausea Status: Resolved (3) acute self limited colitis Status: Acute Specialty Discharge - Follow Up or Referrals Follow up with: Marj Alston MD [Primary Care Provider] - 1 Week Carmelo Hadley MD [Physician] - 1 Month Discharge Plan - Discharge Data Disposition: Disch To Home/Self Care Condition at Discharge: Stable Discharge Diet: advance to your usual diet Activity: resume usual activities as tolerated - Discharge Medications New Ciprofloxacin Tab [Cipro Tab] 500 mg PO Q12HR #14 tablet Hyoscyamine Tab [Levsin Tab] 0.125 mg PO TID #60 tablet Promethazine Tab [Phenergan Tab] 25 mg PO Q6H PRN #30 tablet PRN Reason: Nausea Continue PHENobarbital [Phenobarbital] 200 mg PO BEDTIME Acetaminophen/Caffeine [Excedrin Tension Headache Cplt] 1 each PO DAILY PRN PRN Reason: Headache Methocarbamol 500 mg PO BID PRN PRN Reason: SHOULDER SPASMS LORazepam TAB [Ativan Tab] 0.5 mg PO BID PRN PRN Reason: Agitation Discontinued metroNIDAZOLE [Metronidazole Cap/Tab] 500 mg PO TID Ondansetron HCl [Ondansetron HCl] 4 mg PO Q6H PRN PRN Reason: Nausea/Vomiting - Follow Up or Referral Follow Up: Marj Alston MD [Primary Care Provider] - 1 Week Carmelo Hadley MD [Physician] - 1 Month - Forms/Instructions Instructions: Ciprofloxacin (By mouth), Promethazine (By mouth), Hyoscyamine ( By mouth), Acute Nausea and Vomiting (GEN), Acute Diarrhea (GEN), Acute Abdominal Pain (GEN) Exam - Constitutional Vitals: Period Temp Pulse Resp BP Sys/Patel Pulse Ox Last 24 Hr 97.6 F-98.2 F 60-91 18-20 83-94/51-67 93-98 General appearance: normal weight, no acute distress - Eye Eye exam: Present: EOMI. Absent: scleral icterus - Respiratory Respiratory exam: Present: clear to auscultation bilaterally - Cardiovascular Cardiovascular exam: Present: regular rate and rhythm - GI/Abdominal GI/Abdominal exam: Present: normal bowel sounds, soft. Absent: tenderness - Extremities Exam Extremities exam: Absent: edema Discharge Results Procedures and tests throughout hospitalization: Pending Orders 10/31/16 OVA [Parasitic Examination] Routine 10/31/16 17:45 Occult Blood, Stool Routine DS: Provider Date of admission: 10/31/16 11:49 Primary care physician: Marj Alston MD Attending physician on admission: Inge Aviles MD Consults: 10/31/16 12:23 Consult to Physician [CONS] Routine Comment: Consulting Provider: Carmelo Hadley When should Consulting Provider be notified: Now Person Notified: AWARE Date Notified: 10/31/16 Time Notified: 15:06 Consult Notification Comment: 10+days of loose stools and nausea left sided ABD pain and tenderness and flank pain was placed on Flagyl TID on Monday by PCP without any relief of symptoms stool cultures are now ordered last hospital visit in September for right shoulder rotator cuff repair Discharging clinician: Inge Aviles MD
[2016-11-03 12:39] VITALS: BP 90/70
== END 2016-11-03 14:51 | disposition home or self-care (01) ==
LOC: N.ED 09:14 → N.EDINP 09:14 → N.5E 14:40
PROVIDERS: ADMIT Internal Medicine; ATTEND Internal Medicine

== ENCOUNTER 2017-01-29 11:30 | Inpatient (IN) ==
[2017-01-29] MEDS ORDERED: SODIUM CHLORIDE 0.9% 1,000 ML IV STA (12:31)
[2017-01-29] MEDS ORDERED: ONDANSETRON 4 MG/2 ML VIAL IV STA (12:32)
[2017-01-29 13:03] LABS: Basophils % 0.4 % (0.0-0.8); Eosinophils # 0.2 10*3/uL (0.0-0.87); Eosinophils % 1.8 % (0.00-10.9); Hematocrit 40.5 VOL% (35.7-47.0); Hemoglobin 13.5 GM/DL (12.0-16.0); Immature Granulocytes % 0.4 %; Immature Granulocytes Absolute 0.04 #; Lymphocytes # 1.5 10*3/uL (1.4-4.0); Lymphocytes % 15.2 % (21.3-54.2); Mean Corpuscular HGB Conc 33.3 GM/DL (32-36); Mean Corpuscular Hemoglobin 30 PG (27-34); Mean Corpuscular Volume 90.2 FL (87-102); Mean Platelet Volume 10.4 FL (9.6-12.0); Monocytes # 0.7 10*3/uL (0.11-0.8); Monocytes % 7.1 % (1.7-12.7); Neutrophils # 7.3 10*3/uL (1.4-7.4); Neutrophils % 75.1 % (38.7-73.9); Platelet Count 197 T/CUMM (130-400); Red Blood Count 4.49 MC/CUMM (3.8-5.5); Red Cell Distribution Width 12.1 % (9.3-17.3); White Blood Count 9.7 T/CUMM (4-12)
[2017-01-29] MEDS ORDERED: ONDANSETRON 4 MG/2 ML VIAL ONE (13:12)
[2017-01-29 13:19] LABS: Magnesium 2.1 MG/DL (1.8-2.4)
[2017-01-29 13:25] LABS: Alanine Aminotransferase 19 U/L (13-56); Albumin 3.5 G/DL (3.4-5.0); Alkaline Phosphatase 141 U/L (45-117); Amylase 28 U/L (25-115); Aspartate Amino Transferase 19 U/L (0-37); Bilirubin,Total < 0.39 MG/DL (0.2-1.0); Blood Urea Nitrogen 11 MG/DL (7-18); Calcium 9.1 MG/DL (8.5-10.1); Glucose 88 MG/DL (74-106); Osmolality,Calculated 270.8 MOS/KG (273-304); Potassium 3.6 MMOL/L (3.5-5.1); Sodium 137 MMOL/L (136-145); Total Protein 6.9 G/DL (6.4-8.3)
[2017-01-29] MEDS ORDERED: DICYCLOMINE 20 MG TABLET ONE (15:18)
[2017-01-29] MEDS ORDERED: DICYCLOMINE 20 MG TABLET PO STA (15:20)
[2017-01-29 15:46] LABS: Apearance,Urine Slightly Hazy (Clear); Bacteria,Urine Occasional /HPF (Few); Bilirubin,Urine Negative (Negative); Blood, Urine Moderate mg/dL (Negative); Glucose,Urine (UA) Negative (Negative); Hyaline Casts,Urine 4 /LPF (0-3); Ketones,Urine 20 mg/dL (Negative); Mucus,Urine Few /LPF (Occasional); Nitrite,Urine Negative (Negative); Protein,Urine Negative; RBC,Urine 4 /HPF (0-4); Squamous Epithelial Cell,Urine Occasional /HPF (0-10); Urine Color Yellow (Yellow); Urine Specific Gravity 1.023 (1.001-1.035); Urine Urobilinogen < 2.0 EU/DL (0.2-1.0); WBC,Urine 6 /HPF (0-6)
[2017-01-29] MEDS ORDERED: ACETAMINOPHEN 325 MG TABLET PO PRN (16:59)
[2017-01-29] MEDS: SODIUM CHLORIDE 0.9% 1,000 ML IV SCH (22:35)
[2017-01-29] MEDS: VANCOMYCIN 50 MG/ML 60 ML/BOTTLE PO SCH (22:36)
[2017-01-29] MEDS: metroNIDAZOLE 500 MG TABLET PO SCH (22:36)
[2017-01-30] MEDS: VANCOMYCIN 50 MG/ML 60 ML/BOTTLE PO SCH ×5 (00:40→23:27)
[2017-01-30 03:20] LABS: Basophils % 0.5 % (0.0-0.8); Eosinophils # 0.2 10*3/uL (0.0-0.87); Eosinophils % 2.6 % (0.00-10.9); Hematocrit 32.6 VOL% (35.7-47.0); Hemoglobin 10.7 GM/DL (12.0-16.0); Immature Granulocytes % 0.5 %; Immature Granulocytes Absolute 0.04 #; Lymphocytes # 1.9 10*3/uL (1.4-4.0); Lymphocytes % 25.9 % (21.3-54.2); Mean Corpuscular HGB Conc 32.8 GM/DL (32-36); Mean Corpuscular Hemoglobin 30 PG (27-34); Mean Corpuscular Volume 90.6 FL (87-102); Mean Platelet Volume 10.3 FL (9.6-12.0); Monocytes # 0.7 10*3/uL (0.11-0.8); Monocytes % 9.2 % (1.7-12.7); Neutrophils # 4.5 10*3/uL (1.4-7.4); Neutrophils % 61.3 % (38.7-73.9); Platelet Count 177 T/CUMM (130-400); Red Cell Distribution Width 12.2 % (9.3-17.3); White Blood Count 7.3 T/CUMM (4-12)
[2017-01-30 03:50] LABS: Calcium 8.1 MG/DL (8.5-10.1); Osmolality,Calculated 277.3 MOS/KG (273-304); Potassium 3.3 MMOL/L (3.5-5.1)
[2017-01-30] MEDS: SODIUM CHLORIDE 0.9% 1,000 ML IV SCH ×3 (04:14→17:20)
[2017-01-30] MEDS: metroNIDAZOLE 500 MG TABLET PO SCH ×4 (09:57→23:27)
[2017-01-30] MEDS ORDERED: PROMETHAZINE 25 MG TABLET PO PRN (13:48)
[2017-01-30] MEDS ORDERED: DIPHENOXYLATE/ATROPINE 2.5-0.025 MG TABLET PO PRN (13:48)
[2017-01-30] MEDS: CHOLESTYRAMINE/ASPARTAME 4 GM PACK PO SCH ×2 (17:13→23:08)
[2017-01-31] MEDS: SODIUM CHLORIDE 0.9% 1,000 ML IV SCH ×4 (01:06→18:08)
[2017-01-31] MEDS: metroNIDAZOLE 500 MG TABLET PO SCH ×3 (05:17→17:16)
[2017-01-31] MEDS: VANCOMYCIN 50 MG/ML 60 ML/BOTTLE PO SCH ×4 (05:17→21:45)
[2017-01-31 07:11] LABS: Basophils % 0.4 % (0.0-0.8); Eosinophils # 0.2 10*3/uL (0.0-0.87); Eosinophils % 3.1 % (0.00-10.9); Hematocrit 30.2 VOL% (35.7-47.0); Hemoglobin 10.2 GM/DL (12.0-16.0); Immature Granulocytes % 0.4 %; Immature Granulocytes Absolute 0.02 #; Lymphocytes # 1.3 10*3/uL (1.4-4.0); Lymphocytes % 23.7 % (21.3-54.2); Mean Corpuscular HGB Conc 33.8 GM/DL (32-36); Mean Corpuscular Hemoglobin 30 PG (27-34); Mean Corpuscular Volume 89.3 FL (87-102); Mean Platelet Volume 10.7 FL (9.6-12.0); Monocytes # 0.5 10*3/uL (0.11-0.8); Monocytes % 9.4 % (1.7-12.7); Neutrophils # 3.4 10*3/uL (1.4-7.4); Platelet Count 192 T/CUMM (130-400); Red Blood Count 3.38 MC/CUMM (3.8-5.5); Red Cell Distribution Width 12.5 % (9.3-17.3); White Blood Count 5.4 T/CUMM (4-12)
[2017-01-31 08:10] LABS: Magnesium 1.9 MG/DL (1.8-2.4); Osmolality,Calculated 281.8 MOS/KG (273-304); Potassium 3.5 MMOL/L (3.5-5.1)
[2017-01-31] MEDS: CHOLESTYRAMINE/ASPARTAME 4 GM PACK PO SCH ×3 (10:20→21:45)
[2017-01-31] MEDS: ONDANSETRON 4 MG/2 ML VIAL IV PRN (17:18)
[2017-01-31] MEDS: PHENobarbital 30 MG TABLET PO SCH ×2 (17:19→21:45)
[2017-02-01] MEDS: metroNIDAZOLE 500 MG TABLET PO SCH ×3 (00:07→11:21)
[2017-02-01] MEDS: VANCOMYCIN 50 MG/ML 60 ML/BOTTLE PO SCH ×4 (06:36→21:35)
[2017-02-01] MEDS: SODIUM CHLORIDE 0.9% 1,000 ML IV SCH ×5 (06:53→21:34)
[2017-02-01] MEDS: CHOLESTYRAMINE/ASPARTAME 4 GM PACK PO SCH ×2 (08:55→20:48)
[2017-02-01] MEDS: FIDAXOMICIN 200 MG TABLET PO SCH ×3 (09:10→20:46)
[2017-02-01] MEDS: PHENobarbital 30 MG TABLET PO SCH (20:48)
[2017-02-02] MEDS: VANCOMYCIN 50 MG/ML 60 ML/BOTTLE PO SCH ×2 (03:58→09:59)
[2017-02-02] MEDS: SODIUM CHLORIDE 0.9% 1,000 ML IV SCH ×3 (05:23→22:23)
[2017-02-02] MEDS: FIDAXOMICIN 200 MG TABLET PO SCH ×2 (08:24→20:33)
[2017-02-02] MEDS: CHOLESTYRAMINE/ASPARTAME 4 GM PACK PO SCH ×2 (08:24→20:35)
[2017-02-02] MEDS: ONDANSETRON 4 MG/2 ML VIAL IV PRN (11:41)
[2017-02-02] MEDS: PHENobarbital 30 MG TABLET PO SCH (20:35)
[2017-02-03 03:31] LABS: Basophils % 0.6 % (0.0-0.8); Eosinophils # 0.2 10*3/uL (0.0-0.87); Eosinophils % 3.5 % (0.00-10.9); Hemoglobin 10.4 GM/DL (12.0-16.0); Immature Granulocytes % 0.8 %; Immature Granulocytes Absolute 0.04 #; Lymphocytes # 2.1 10*3/uL (1.4-4.0); Lymphocytes % 43.7 % (21.3-54.2); Mean Corpuscular HGB Conc 33.5 GM/DL (32-36); Mean Corpuscular Hemoglobin 30 PG (27-34); Mean Corpuscular Volume 88.6 FL (87-102); Mean Platelet Volume 10.4 FL (9.6-12.0); Monocytes # 0.5 10*3/uL (0.11-0.8); Monocytes % 9.5 % (1.7-12.7); Neutrophils % 41.9 % (38.7-73.9); Platelet Count 228 T/CUMM (130-400); Red Cell Distribution Width 12.7 % (9.3-17.3); White Blood Count 4.9 T/CUMM (4-12)
[2017-02-03 03:55] LABS: Blood Urea Nitrogen < 1 MG/DL (7-18); Calcium 7.9 MG/DL (8.5-10.1); Glucose 74 MG/DL (74-106); Magnesium 1.9 MG/DL (1.8-2.4); Osmolality,Calculated 284.9 MOS/KG (273-304); Potassium 3.2 MMOL/L (3.5-5.1); Sodium 146 MMOL/L (136-145)
[2017-02-03] MEDS: SODIUM CHLORIDE 0.9% 1,000 ML IV SCH ×2 (06:39→16:08)
[2017-02-03] MEDS: FIDAXOMICIN 200 MG TABLET PO SCH ×2 (10:10→21:20)
[2017-02-03] MEDS: CHOLESTYRAMINE/ASPARTAME 4 GM PACK PO SCH ×2 (10:11→21:19)
[2017-02-03] MEDS: ONDANSETRON 4 MG/2 ML VIAL IV PRN ×2 (13:10→22:18)
[2017-02-03] MEDS: POTASSIUM CHLORIDE 20 MEQ TABLET PO SCH ×3 (16:15→22:18)
[2017-02-03] MEDS: PHENobarbital 30 MG TABLET PO SCH (21:27)
[2017-02-04] MEDS: SODIUM CHLORIDE 0.9% 1,000 ML IV SCH (05:06)
[2017-02-04 07:00] LABS: Calcium 8.3 MG/DL (8.5-10.1); Magnesium 2.1 MG/DL (1.8-2.4); Osmolality,Calculated 284.6 MOS/KG (273-304); Potassium 3.6 MMOL/L (3.5-5.1)
[2017-02-04] MEDS: FIDAXOMICIN 200 MG TABLET PO SCH ×2 (08:05→21:22)
[2017-02-04] MEDS: CHOLESTYRAMINE/ASPARTAME 4 GM PACK PO SCH ×2 (08:05→21:36)
[2017-02-04] MEDS: PHENobarbital 30 MG TABLET PO SCH (21:24)
[2017-02-05 07:28] VITALS: BP 88/55
[2017-02-05] MEDS: CHOLESTYRAMINE/ASPARTAME 4 GM PACK PO SCH (08:15)
[2017-02-05] MEDS: FIDAXOMICIN 200 MG TABLET PO SCH (08:15)
== END 2017-02-05 11:05 | disposition home or self-care (01) | DRG 373 ==
LOC: N.ED 11:30 → N.EDINP 16:25 → N.5E 20:02
PROVIDERS: ADMIT Internal Medicine; ATTEND Internal Medicine

== ENCOUNTER 2017-05-15 13:48 | Inpatient (IN) ==
[2017-05-15 16:10] LABS: Apearance,Urine CLOUDY (Clear); Bacteria,Urine Occasional /HPF (Few); Bilirubin,Urine Small mg/dL (Negative); Blood, Urine Moderate mg/dL (Negative); Glucose,Urine (UA) Negative (Negative); Ketones,Urine 20 mg/dL (Negative); Mucus,Urine Many /LPF (Occasional); Nitrite,Urine Negative (Negative); Protein,Urine 30 MG/DL; RBC,Urine 3 /HPF (0-4); Squamous Epithelial Cell,Urine Many /HPF (0-10); Urine Color Yellow (Yellow); Urine Specific Gravity 1.024 (1.001-1.035); WBC,Urine 2 /HPF (0-6)
[2017-05-15] MEDS ORDERED: SODIUM CHLORIDE 0.9% 1,000 ML IV STA (16:51)
[2017-05-15 17:11] LABS: Basophils % 0.5 % (0.0-0.8); Eosinophils # 0.2 10*3/uL (0.0-0.87); Eosinophils % 3.5 % (0.00-10.9); Hematocrit 37.2 VOL% (35.7-47.0); Hemoglobin 12.4 GM/DL (12.0-16.0); Immature Granulocytes % 0.4 %; Immature Granulocytes Absolute 0.02 #; Lymphocytes # 1.4 10*3/uL (1.4-4.0); Lymphocytes % 25.8 % (21.3-54.2); Mean Corpuscular HGB Conc 33.3 GM/DL (32-36); Mean Corpuscular Hemoglobin 30 PG (27-34); Mean Corpuscular Volume 90.1 FL (87-102); Monocytes # 0.5 10*3/uL (0.11-0.8); Monocytes % 9.8 % (1.7-12.7); Neutrophils # 3.3 10*3/uL (1.4-7.4); Platelet Count 219 T/CUMM (130-400); Red Blood Count 4.13 MC/CUMM (3.8-5.5); Red Cell Distribution Width 12.8 % (9.3-17.3); White Blood Count 5.5 T/CUMM (4-12)
[2017-05-15 17:47] LABS: Alanine Aminotransferase 19 U/L (13-56); Albumin 3.3 G/DL (3.4-5.0); Alkaline Phosphatase 131 U/L (45-117); Aspartate Amino Transferase 13 U/L (0-37); Bilirubin,Total < 0.39 MG/DL (0.2-1.0); Blood Urea Nitrogen 7 MG/DL (7-18); Calcium 8.9 MG/DL (8.5-10.1); Glucose 80 MG/DL (74-106); Osmolality,Calculated 275.4 MOS/KG (273-304); Potassium 3.4 MMOL/L (3.5-5.1); Sodium 140 MMOL/L (136-145); Total Protein 6.1 G/DL (6.4-8.3)
[2017-05-15] MEDS: FIDAXOMICIN 200 MG TABLET PO SCH (22:16)
[2017-05-15] MEDS: PHENOBARBITAL PO SCH (22:16)
[2017-05-15] MEDS: ENOXAPARIN 40 MG/0.4 ML SYRINGE SUBCUT SCH (22:16)
[2017-05-15] MEDS: SODIUM CHLORIDE 0.9% 1,000 ML IV SCH (22:17)
[2017-05-16 06:02] LABS: Basophils % 0.6 % (0.0-0.8); Eosinophils # 0.2 10*3/uL (0.0-0.87); Eosinophils % 2.7 % (0.00-10.9); Hemoglobin 11.1 GM/DL (12.0-16.0); Immature Granulocytes % 0.5 %; Immature Granulocytes Absolute 0.03 #; Lymphocytes % 31.3 % (21.3-54.2); Mean Corpuscular HGB Conc 33.6 GM/DL (32-36); Mean Corpuscular Hemoglobin 30 PG (27-34); Mean Corpuscular Volume 90.4 FL (87-102); Mean Platelet Volume 10.4 FL (9.6-12.0); Monocytes # 0.4 10*3/uL (0.11-0.8); Monocytes % 6.7 % (1.7-12.7); Neutrophils # 3.7 10*3/uL (1.4-7.4); Neutrophils % 58.2 % (38.7-73.9); Platelet Count 202 T/CUMM (130-400); Red Blood Count 3.65 MC/CUMM (3.8-5.5); Red Cell Distribution Width 12.7 % (9.3-17.3); White Blood Count 6.4 T/CUMM (4-12)
[2017-05-16 06:40] LABS: Calcium 8.4 MG/DL (8.5-10.1); Osmolality,Calculated 273.4 MOS/KG (273-304); Potassium 3.6 MMOL/L (3.5-5.1)
[2017-05-16] MEDS: SODIUM CHLORIDE 0.9% 1,000 ML IV SCH ×3 (08:00→21:10)
[2017-05-16] MEDS: ONDANSETRON 4 MG/2 ML VIAL IV PRN ×2 (10:17→22:55)
[2017-05-16] MEDS: FIDAXOMICIN 200 MG TABLET PO SCH ×2 (10:17→21:07)
[2017-05-16] MEDS: HYOSCYAMINE 0.125 MG TABLET PO PRN ×2 (10:17→17:50)
[2017-05-16] MEDS: POTASSIUM CHLORIDE 10 MEQ TABLET PO SCH (10:17)
[2017-05-16] MEDS ORDERED: SODIUM CHLORIDE 0.9% 500 ML IV ONE ×2 (11:43→13:29)
[2017-05-16] MEDS: CHOLESTYRAMINE 4 GM PACK PO SCH ×2 (15:45→21:07)
[2017-05-16] MEDS: ENOXAPARIN 40 MG/0.4 ML SYRINGE SUBCUT SCH (21:07)
[2017-05-16] MEDS: PHENOBARBITAL PO SCH (21:07)
[2017-05-17 06:49] LABS: Calcium 8.2 MG/DL (8.5-10.1); Osmolality,Calculated 286.4 MOS/KG (273-304); Potassium 3.3 MMOL/L (3.5-5.1)
[2017-05-17] MEDS: POTASSIUM CHLORIDE 10 MEQ TABLET PO SCH (09:01)
[2017-05-17] MEDS: FIDAXOMICIN 200 MG TABLET PO SCH ×3 (09:01→21:05)
[2017-05-17] MEDS: SODIUM CHLORIDE 0.9% 1,000 ML IV SCH ×4 (09:01→22:43)
[2017-05-17] MEDS: CHOLESTYRAMINE 4 GM PACK PO SCH ×2 (09:10→21:05)
[2017-05-17] MEDS ORDERED: POTASSIUM CHLORIDE 20 MEQ TABLET PO ONE (12:22)
[2017-05-17] MEDS: ONDANSETRON 4 MG/2 ML VIAL IV PRN ×2 (15:08→22:39)
[2017-05-17] MEDS: ENOXAPARIN 40 MG/0.4 ML SYRINGE SUBCUT SCH (21:05)
[2017-05-17] MEDS: PHENOBARBITAL PO SCH (21:05)
[2017-05-17] MEDS: HYOSCYAMINE 0.125 MG TABLET PO PRN (22:38)
[2017-05-18] MEDS: SODIUM CHLORIDE 0.9% 1,000 ML IV SCH ×2 (04:08→15:45)
[2017-05-18] MEDS: FIDAXOMICIN 200 MG TABLET PO SCH ×2 (10:57→21:00)
[2017-05-18] MEDS: POTASSIUM CHLORIDE 10 MEQ TABLET PO SCH (11:00)
[2017-05-18] MEDS: CHOLESTYRAMINE 4 GM PACK PO SCH (11:00)
[2017-05-18] MEDS ORDERED: POTASSIUM CHLORIDE 20 MEQ TABLET PO ONE (11:22)
[2017-05-18] MEDS: DEXTROSE 5% NACL 0.45% 1,000 ML IV SCH (17:55)
[2017-05-18] MEDS: PHENOBARBITAL PO SCH (21:00)
[2017-05-18] MEDS: ENOXAPARIN 40 MG/0.4 ML SYRINGE SUBCUT SCH (21:00)
[2017-05-19] MEDS: DEXTROSE 5% NACL 0.45% 1,000 ML IV SCH ×5 (01:16→20:26)
[2017-05-19] MEDS: SODIUM CHLORIDE 0.9% 1,000 ML IV SCH ×2 (01:16→07:46)
[2017-05-19 07:11] LABS: Blood Urea Nitrogen < 1 MG/DL (7-18); Calcium 8.3 MG/DL (8.5-10.1); Glucose 87 MG/DL (74-106); Osmolality,Calculated 286.8 MOS/KG (273-304); Potassium 3.2 MMOL/L (3.5-5.1); Sodium 147 MMOL/L (136-145)
[2017-05-19] MEDS: ONDANSETRON 4 MG/2 ML VIAL IV PRN (09:17)
[2017-05-19] MEDS: FIDAXOMICIN 200 MG TABLET PO SCH ×2 (09:18→20:25)
[2017-05-19] MEDS: POTASSIUM CHLORIDE 10 MEQ TABLET PO SCH (09:18)
[2017-05-19] MEDS: HYOSCYAMINE 0.125 MG TABLET PO PRN (09:18)
[2017-05-19] MEDS ORDERED: POTASSIUM CHLORIDE 20 MEQ TABLET PO ONE (09:19)
[2017-05-19] MEDS: ONDANSETRON 4 MG TABLET PO SCH ×2 (14:42→23:10)
[2017-05-19] MEDS: PHENOBARBITAL PO SCH (20:25)
[2017-05-19] MEDS: ENOXAPARIN 40 MG/0.4 ML SYRINGE SUBCUT SCH (20:25)
[2017-05-20] MEDS: DEXTROSE 5% NACL 0.45% 1,000 ML IV SCH ×4 (03:33→14:01)
[2017-05-20 05:34] LABS: Calcium 8.3 MG/DL (8.5-10.1); Osmolality,Calculated 286.4 MOS/KG (273-304); Potassium 3.4 MMOL/L (3.5-5.1)
[2017-05-20] MEDS: ONDANSETRON 4 MG TABLET PO SCH ×3 (05:40→23:30)
[2017-05-20] MEDS: POTASSIUM CHLORIDE 10 MEQ TABLET PO SCH (09:10)
[2017-05-20] MEDS: FIDAXOMICIN 200 MG TABLET PO SCH ×2 (09:10→20:03)
[2017-05-20] MEDS: PHENOBARBITAL PO SCH (20:03)
[2017-05-20] MEDS: ENOXAPARIN 40 MG/0.4 ML SYRINGE SUBCUT SCH (20:03)
[2017-05-21] MEDS: DEXTROSE 5% NACL 0.45% 1,000 ML IV SCH (00:35)
[2017-05-21] MEDS: ONDANSETRON 4 MG TABLET PO SCH ×3 (06:27→23:38)
[2017-05-21 06:30] LABS: Calcium 7.9 MG/DL (8.5-10.1); Osmolality,Calculated 285.6 MOS/KG (273-304)
[2017-05-21] MEDS ORDERED: POTASSIUM CHLORIDE INJ 20 MEQ in DEXTROSE 5% NACL 0.45% 1,000 ML IV SCH (07:54)
[2017-05-21] MEDS: DEXT 5% NACL 0.45% KCL 20 MEQ 20 MEQ/1,000 ML BAG IV SCH ×2 (09:38→16:20)
[2017-05-21] MEDS: FIDAXOMICIN 200 MG TABLET PO SCH ×2 (09:38→22:10)
[2017-05-21] MEDS ORDERED: BISACODYL 5 MG TABLET PO ONE (12:00)
[2017-05-21 12:35] LABS: Apearance,Urine CLEAR (Clear); Bacteria,Urine Occasional /HPF (Few); Bilirubin,Urine Negative (Negative); Blood, Urine Negative (Negative); Glucose,Urine (UA) Negative (Negative); Ketones,Urine Negative (Negative); Mucus,Urine Occasional /LPF (Occasional); Nitrite,Urine Negative (Negative); Protein,Urine Negative; RBC,Urine <1 /HPF (0-4); Squamous Epithelial Cell,Urine Occasional /HPF (0-10); Urine Color Straw (Yellow); Urine Specific Gravity 1.004 (1.001-1.035); Urine Urobilinogen < 2.0 EU/DL (0.2-1.0); WBC,Urine <1 /HPF (0-6)
[2017-05-21] MEDS: POTASSIUM CHLORIDE RIDER 10 MEQ in PREMIX 1 EACH IV PRN ×5 (12:45→22:10)
[2017-05-21] MEDS ORDERED: POLYETHYLENE GLYCOL POWDER 255 GM BOTTLE PO ONE (18:00)
[2017-05-21] MEDS: ENOXAPARIN 40 MG/0.4 ML SYRINGE SUBCUT SCH (22:10)
[2017-05-21] MEDS: PHENOBARBITAL PO SCH (22:10)
[2017-05-22 01:45] LABS: Basophils % 0.7 % (0.0-0.8); Eosinophils # 0.2 10*3/uL (0.0-0.87); Eosinophils % 3.3 % (0.00-10.9); Hematocrit 41.1 VOL% (35.7-47.0); Hemoglobin 13.7 GM/DL (12.0-16.0); Immature Granulocytes % 0.3 %; Immature Granulocytes Absolute 0.02 #; Lymphocytes # 2.1 10*3/uL (1.4-4.0); Lymphocytes % 36.9 % (21.3-54.2); Mean Corpuscular HGB Conc 33.3 GM/DL (32-36); Mean Corpuscular Hemoglobin 30 PG (27-34); Mean Corpuscular Volume 90.3 FL (87-102); Mean Platelet Volume 10.9 FL (9.6-12.0); Monocytes # 0.4 10*3/uL (0.11-0.8); Monocytes % 7.3 % (1.7-12.7); Neutrophils % 51.5 % (38.7-73.9); Platelet Count 266 T/CUMM (130-400); Red Blood Count 4.55 MC/CUMM (3.8-5.5); Red Cell Distribution Width 13.4 % (9.3-17.3); White Blood Count 5.8 T/CUMM (4-12)
[2017-05-22 02:39] LABS: Blood Urea Nitrogen < 1 MG/DL (7-18); Glucose 84 MG/DL (74-106); Osmolality,Calculated 279.3 MOS/KG (273-304); Potassium 3.6 MMOL/L (3.5-5.1); Sodium 143 MMOL/L (136-145)
[2017-05-22] MEDS: DEXT 5% NACL 0.45% KCL 20 MEQ 20 MEQ/1,000 ML BAG IV SCH ×3 (03:29→20:34)
[2017-05-22] MEDS: ONDANSETRON 4 MG TABLET PO SCH ×3 (07:40→22:13)
[2017-05-22] MEDS: FIDAXOMICIN 200 MG TABLET PO SCH ×2 (09:58→20:33)
[2017-05-22] MEDS: PHENOBARBITAL PO SCH (20:33)
[2017-05-22] MEDS: ONDANSETRON 4 MG/2 ML VIAL IV PRN (20:33)
[2017-05-22] MEDS: ENOXAPARIN 40 MG/0.4 ML SYRINGE SUBCUT SCH (20:34)
[2017-05-23] MEDS: DEXT 5% NACL 0.45% KCL 20 MEQ 20 MEQ/1,000 ML BAG IV SCH ×5 (00:01→21:30)
[2017-05-23] MEDS: ONDANSETRON 4 MG TABLET PO SCH ×3 (05:46→21:30)
[2017-05-23 07:36] LABS: Basophils % 0.7 % (0.0-0.8); Eosinophils # 0.2 10*3/uL (0.0-0.87); Eosinophils % 3.9 % (0.00-10.9); Hemoglobin 12.1 GM/DL (12.0-16.0); Immature Granulocytes % 0.5 %; Immature Granulocytes Absolute 0.02 #; Lymphocytes # 1.9 10*3/uL (1.4-4.0); Mean Corpuscular HGB Conc 33.6 GM/DL (32-36); Mean Corpuscular Hemoglobin 30 PG (27-34); Mean Corpuscular Volume 90.5 FL (87-102); Mean Platelet Volume 10.4 FL (9.6-12.0); Monocytes # 0.3 10*3/uL (0.11-0.8); Monocytes % 7.7 % (1.7-12.7); Neutrophils # 1.9 10*3/uL (1.4-7.4); Neutrophils % 43.2 % (38.7-73.9); Platelet Count 240 T/CUMM (130-400); Red Blood Count 3.98 MC/CUMM (3.8-5.5); Red Cell Distribution Width 13.5 % (9.3-17.3); White Blood Count 4.4 T/CUMM (4-12)
[2017-05-23 07:48] LABS: Calcium 8.3 MG/DL (8.5-10.1); Osmolality,Calculated 282.7 MOS/KG (273-304); Potassium 3.3 MMOL/L (3.5-5.1)
[2017-05-23] MEDS: FIDAXOMICIN 200 MG TABLET PO SCH ×2 (09:08→21:29)
[2017-05-23] MEDS ORDERED: PROPOFOL 200 MG/20 ML VIAL IV ONE (12:25)
[2017-05-23] MEDS ORDERED: LIDOCAINE 1% 5 ML VIAL ONE (12:25)
[2017-05-23] MEDS: ONDANSETRON 4 MG/2 ML VIAL IV PRN (13:16)
[2017-05-23] MEDS ORDERED: ONDANSETRON 4 MG/2 ML VIAL ONE (13:16)
[2017-05-23] MEDS ORDERED: ONDANSETRON 4 MG/2 ML VIAL IV PRN (13:24)
[2017-05-23] MEDS ORDERED: MEPERIDINE 25 MG/1 ML VIAL IV ONE (13:25)
[2017-05-23] MEDS ORDERED: MEPERIDINE 50 MG/1 ML VIAL ONE (13:28)
[2017-05-23] MEDS: HYOSCYAMINE 0.125 MG TABLET PO PRN (21:29)
[2017-05-23] MEDS: PHENOBARBITAL PO SCH (21:29)
[2017-05-23] MEDS: ENOXAPARIN 40 MG/0.4 ML SYRINGE SUBCUT SCH (21:30)
[2017-05-24] MEDS: DEXT 5% NACL 0.45% KCL 20 MEQ 20 MEQ/1,000 ML BAG IV SCH (06:04)
[2017-05-24] MEDS: ONDANSETRON 4 MG TABLET PO SCH (06:04)
[2017-05-24] MEDS: HYOSCYAMINE 0.125 MG TABLET PO PRN (06:06)
[2017-05-24 07:09] VITALS: BP 103/55
[2017-05-24] MEDS: FIDAXOMICIN 200 MG TABLET PO SCH (09:24)
== END 2017-05-24 10:30 | disposition home or self-care (01) | DRG 372 ==
LOC: N.ED 13:48 → N.EDINP 19:53 → SUATTDRO 19:53 → N.5E 20:46
PROVIDERS: ADMIT Internal Medicine Infectious Disease; ATTEND Internal Medicine